=== PATIENT | female | born 1980 | race Caucasian/White ===

== ENCOUNTER 2024-09-06 15:47 | Inpatient (IN) ==
--- NOTE | 2024-09-06 16:10 | Emergency Department Note ---
Impression & Plan Intentional overdose ADMIT ED Provider Note HPI: History obtained from EMS report. The patient is a 43-year-old female who presents the emergency department after an intentional overdose. Patient went to an outpatient facility through [facility] and told someone there that she had overdosed on Excedrin, ibuprofen, and Tylenol. Per EMS report patient states she took "100 tabs". On arrival here to the ED the patient appears altered, she is alert to verbal stimuli, she is saturating well on room air and she is otherwise hemodynamically stable. She is a poor historian and seems somewhat delirious. On arrival here to the ED the patient is otherwise alert, she is protecting her airway and saturating well on arrival. Patient is otherwise hemodynamically stable. ROS: - Per HPI Differential Diagnosis: Polysubstance abuse, intentional drug overdose, salicylate toxicity, acetaminophen toxicity, alcohol intoxication, amongst other potential pathologies. *Outpatient medications and allergy history reviewed. PE: General: Alert to verbal stimuli, delirious appearing HEENT: Normocephalic, trachea midline Eyes: Extraocular eye movement is intact, no scleral erythema Pulmonary: Clear to auscultation bilaterally, no wheezing Cardio: Regular rate and rhythm GI: Abdomen is soft to palpation : No suprapubic tenderness MSK: No evidence of trauma or malformation of the extremities, no edema Skin: No evidence of rash Neuro: Alert, no focal deficits Psychiatric: Patient is mildly agitated, delirious INDEPENDENT INTERPRETATIONS: county manager: (As interpreted by myself): - An order was placed for continuous cardiac monitoring - Patient was noted to be in sinus rhythm with a rate of 101 EKG: (As interpreted by myself): Rate: 65 Rhythm: Sinus rhythm Intervals: QTc 501 ms, otherwise within normal limits ST changes: No ST elevation Time: 1606 Interventions provided in ED: -N-acetylcysteine drip, sodium bicarbonate drip, IV Narcan Medical Decision Making: IV was established and lab work obtained, patient was placed on reimbursement director. Patient was initiated on N-acetylcysteine shortly after arrival secondary to reported history of Tylenol ingestion with altered mental status. Lab work shows a nonspecific leukocytosis of 18.59, hemoglobin is normal, platelet count is 403, venous blood gas shows a venous pH of 7.30, CMP shows sodium bicarbonate reduced at 14. Initial acetaminophen serum level comes back elevated at 615, salicylate level is also elevated at 49.0. Patient's case was discussed with poison control, they are in agreement for initiation of N-acetylcysteine as well as sodium bicarbonate drip as the patient's salicylate level is greater than 30.0. On my reassessment the patient remains hemodynamically stable, she is more alert appearing, she remains protecting her airway without issue. I discussed the patient's presentation with the on-call midlevel provider for [facility], Clarissa davis PA-C, and the patient was placed for admission in stable condition to the service of Dr. Alvarado. Consultants/Discussions held with other healthcare providers: -Poison Control Center -Hospitalist, Dr. Alvarado * CRITICAL CARE TIME: ( 39 ) minutes -Initiation of N-acetylcysteine as well as sodium bicarbonate drip for patient with acute acetaminophen poisoning and acute salicylate poisoning with altered mental status, discussion with poison control, discussion with other healthcare providers and arrangement of admission. Diagnosis: 1. Intentional overdose 2. Tylenol toxicity, acute 3. Salicylate toxicity, acute 4. Metabolic encephalopathy, acute 5. Metabolic acidosis, acute Disposition: Admission Stan Brown DO Emergency Medicine Past Med/Surg History Problem List (Updated 09/06/24 @ 22:07 by Stan Brown DO) High anion gap metabolic acidosis Respiratory alkalosis Toxic encephalopathy Metabolic acidosis Intentional overdose (Acute) Social History Smoking Status: Never smoker Hx Alcohol Use: Yes Hx Substance Use: No Preferred Language: Kyr[employer] [employer] Shift Lead Required: No Beliefs That Will Affect Care: None Current Living Situation: Parent Current Living Situation Comment: lives with mother Other Information That Helps Us Care for You: No Assistive Devices: Glasses and Hearing Aid - Bilateral Allergies Allergies Allergy/AdvReac Type Severity Reaction Status Date / Time No Known Allergies Allergy Unverified 09/06/24 16:46 Home Meds Home Medications Medication Instructions Recorded Confirmed NyQuil 2 HS 09/06/24 Vitamin D3 2,000 unit 1XD 09/06/24 09/06/24 aspirin 325 mg tablet,delayed 325 mg PO DAILY 09/06/24 09/06/24 release brexpiprazole 4 mg tablet (Rexulti) 4 mg PO DAILY 09/06/24 09/06/24 bupropion HCl 100 mg tablet,12 hr 100 mg PO DAILY 09/06/24 09/06/24 sustained-release carvedilol 6.25 mg tablet 6.25 mg PO BID 09/06/24 09/06/24 clonazepam 0.5 mg tablet 1 mg PO DAILY 09/06/24 09/06/24 clonidine HCl 0.2 mg tablet 0.4 mg PO DAILY 09/06/24 09/06/24 dextroamphetamine-amphetamine ER 50 mg PO DAILY 09/06/24 09/06/24 50 mg capsule,3 bead,ext release 24hr (Mydayis) famotidine 20 mg tablet 20 mg PO BID PRN breakthrough 09/06/24 09/06/24 heatburn hydroxyzine pamoate 25 mg capsule 50 mg PO DAILY 09/06/24 09/06/24 losartan 25 mg tablet 25 mg PO DAILY 09/06/24 09/06/24 naltrexone 50 mg tablet 50 mg PO DAILY 09/06/24 09/06/24 pantoprazole 40 mg tablet,delayed 40 mg PO DAILY 09/06/24 09/06/24 release zonisamide 100 mg capsule 200 mg PO DAILY 09/06/24 09/06/24 Results & Data (ED) Vital Signs Vital Signs - 24 hr 09/06/24 15:59 09/06/24 16:01 09/06/24 16:03 Temperature 37 C Temperature Source Oral Pulse Rate 78 83 85 Pulse Rate from SpO2 Sensor 85 Respiratory Rate 22 23 Respiratory Effort / Characteristics Non-Labored Spontaneous Respiratory Depth Normal Blood Pressure 118/69 Blood Pressure Mean 85 Pulse Oximetry 99 99 Oxygen Delivery Method Room Air Sepsis Recent Fever Within 48 Hours No Sepsis New/Unexplained Change in Mental Status N/A Sepsis Action Taken by Nursing No Action Required 09/06/24 16:04 09/06/24 16:08 09/06/24 16:12 Temperature Temperature Source Pulse Rate 64 Pulse Rate from SpO2 Sensor 64 Respiratory Rate Respiratory Effort / Characteristics Respiratory Depth Blood Pressure 118/69 Blood Pressure Mean 83 Pulse Oximetry 99 Oxygen Delivery Method Room Air Sepsis Recent Fever Within 48 Hours Sepsis New/Unexplained Change in Mental Status Sepsis Action Taken by Nursing 09/06/24 16:15 09/06/24 16:15 09/06/24 16:15 Temperature Temperature Source Pulse Rate 70 Pulse Rate from SpO2 Sensor 69 Respiratory Rate 22 Respiratory Effort / Characteristics Respiratory Depth Blood Pressure 122/67 122/67 Blood Pressure Mean 77 77 Pulse Oximetry 99 Oxygen Delivery Method Sepsis Recent Fever Within 48 Hours Sepsis New/Unexplained Change in Mental Status Sepsis Action Taken by Nursing 09/06/24 16:18 09/06/24 16:31 09/06/24 16:31 Temperature Temperature Source Pulse Rate 68 Pulse Rate from SpO2 Sensor 68 Respiratory Rate Respiratory Effort / Characteristics Respiratory Depth Blood Pressure 109/62 109/62 Blood Pressure Mean 69 69 Pulse Oximetry 99 Oxygen Delivery Method Sepsis Recent Fever Within 48 Hours Sepsis New/Unexplained Change in Mental Status Sepsis Action Taken by Nursing 09/06/24 16:33 09/06/24 16:45 09/06/24 16:45 Temperature Temperature Source Pulse Rate 78 84 Pulse Rate from SpO2 Sensor 77 85 Respiratory Rate 16 Respiratory Effort / Characteristics Respiratory Depth Blood Pressure 92/64 L Blood Pressure Mean 69 Pulse Oximetry 98 98 Oxygen Delivery Method Sepsis Recent Fever Within 48 Hours Sepsis New/Unexplained Change in Mental Status Sepsis Action Taken by Nursing 09/06/24 16:45 09/06/24 16:45 09/06/24 16:51 Temperature Temperature Source Pulse Rate 82 Pulse Rate from SpO2 Sensor 82 Respiratory Rate Respiratory Effort / Characteristics Respiratory Depth Blood Pressure 92/64 L 92/64 L Blood Pressure Mean 69 69 Pulse Oximetry 98 Oxygen Delivery Method Sepsis Recent Fever Within 48 Hours Sepsis New/Unexplained Change in Mental Status Sepsis Action Taken by Nursing 09/06/24 16:54 09/06/24 17:00 09/06/24 17:09 Temperature Temperature Source Pulse Rate 85 Pulse Rate from SpO2 Sensor 85 97 H Respiratory Rate 23 Respiratory Effort / Characteristics Respiratory Depth Blood Pressure 92/65 L Blood Pressure Mean 72 Pulse Oximetry 97 97 Oxygen Delivery Method Sepsis Recent Fever Within 48 Hours Sepsis New/Unexplained Change in Mental Status Sepsis Action Taken by Nursing 09/06/24 17:15 09/06/24 17:15 09/06/24 17:15 Temperature Temperature Source Pulse Rate Pulse Rate from SpO2 Sensor Respiratory Rate Respiratory Effort / Characteristics Respiratory Depth Blood Pressure 97/61 L 97/61 L 97/61 L Blood Pressure Mean 70 70 70 Pulse Oximetry Oxygen Delivery Method Sepsis Recent Fever Within 48 Hours Sepsis New/Unexplained Change in Mental Status Sepsis Action Taken by Nursing 09/06/24 17:15 Temperature Temperature Source Pulse Rate 98 H Pulse Rate from SpO2 Sensor 98 H Respiratory Rate 20 Respiratory Effort / Characteristics Respiratory Depth Blood Pressure Blood Pressure Mean Pulse Oximetry 97 Oxygen Delivery Method Sepsis Recent Fever Within 48 Hours Sepsis New/Unexplained Change in Mental Status Sepsis Action Taken by Nursing Laboratory Data 09/06/24 16:00 09/06/24 21:10 Lab Results 09/06/24 09/06/24 Range/Units 16:00 16:07 WBC 18.59 H (4.8-10.8) K/ul RBC 4.64 (4.20-5.40) M/uL Hgb 14.3 (12.0-16.0) g/dl Hct 41.5 (37.0-47.0) % MCV 89.4 (80.0-100.0) fL MCH 30.8 (25.0-34.0) pg MCHC 34.5 (32.0-36.0) g/dL RDW Std Deviation 40.5 (36.4-46.3) fL RDW Coeff of Christine 12.4 (11.5-14.5) % Plt Count 403 H (130-400) K/uL MPV 9.5 (9.4-12.4) fL Immature Gran % (Auto) 0.3 % Neut % (Auto) 47.2 % Lymph % (Auto) 45.9 % Rawlins % (Auto) 5.6 % Eos % (Auto) 0.5 % Baso % (Auto) 0.5 % Neut # (Auto) 8.76 H (1.40-6.50) K/uL Lymph # (Auto) 8.54 H (1.20-3.40) K/uL [place] # (Auto) 1.04 H (0.11-0.59) K/uL Eos # (Auto) 0.10 (0.00-0.50) K/uL Baso # (Auto) 0.09 (0.00-0.20) K/uL Immature Gran # (Auto) 0.06 (0.01-0.20) K/uL Microcytosis Present Echinocytes 2+ VBG pH 7.30 L (7.36-7.41) VBG pCO2 27 L (38-50) mmHg VBG pO2 56 mmHg VBG HCO3 13 mmol/L VBG O2 Saturation 87.6 % VBG Base Excess -11.5 mEq/L Sodium 139 (136-145) mmol/L Potassium 3.7 (3.5-5.1) mmol/L Chloride 103 (98-107) mmol/L Carbon Dioxide 14 L (21-32) mmol/L Anion Gap 22 H (3-11) BUN 19 (6-23) mg/dl Creatinine 1.03 (0.6-1.2) mg/dl Est Cr Clr Drug Dosing 63.6 ml/min eGFR 69.62 BUN/Creatinine Ratio 18.4 (10-20) Glucose 235 H (70-99(Fasting)) mg/dl Calcium 9.6 (8.6-10.3) mg/dl Total Bilirubin 0.4 (0.2-1.0) mg/dl AST 17 (13-39) U/L ALT 9 (7-52) U/L Alkaline Phosphatase 81 (34-104) U/L Total Protein 7.5 (6.0-8.3) gm/dl Albumin 4.9 (3.4-5.0) gm/dl Globulin 2.6 (2.5-4.0) gm/dl Albumin/Globulin Ratio 1.9 (0.9-2) TSH 1.025 (0.300-4.500) uIu/ml Salicylates 49.0 H* (3.0-30) mg/dl Acetaminophen 615 H* (10-30) ug/ml Administered Medications Sodium Bicarbonate 150 meq/ (Dextrose) 1,150 mls @ 175 mls/hr IV .Q6H35M JOON Stop: 10/06/24 16:14 Last Infusion: 09/06/24 20:24 Dose: 175 mls/hr Documented By: Admin: 09/06/24 16:38 Dose: 150 mls/hr Documented By: BCN Potassium Chloride (K Nicholas / Wtr) 10 meq in 100 mls @ 100 mls/hr IV Q1H JOON Stop: 09/06/24 22:14 Last Admin: 09/06/24 21:04 Dose: 100 mls/hr Documented By: Infusion: 09/06/24 20:56 Dose: Infused Documented By: Admin: 09/06/24 19:56 Dose: 100 mls/hr Documented By: Infusion: 09/06/24 19:50 Dose: Infused Documented By: Admin: 09/06/24 18:50 Dose: 100 mls/hr Documented By: AMB Pantoprazole Sodium (Protonix) 40 mg in 10 mls @ 5 mls/min IV DAILY JOON Stop: 10/06/24 18:59 Last Admin: 09/06/24 20:24 Dose: 5 mls/min Documented By: ISATU Magnesium Sulfate/Dextrose (Magnesium Sulfate / D5w) 1 gm in 100 mls @ 100 mls/hr IV Q1H JOON Stop: 09/06/24 23:14 Last Admin: 09/06/24 21:22 Dose: 100 mls/hr Documented By: Infusion: 09/06/24 21:22 Dose: Infused Documented By: Admin: 09/06/24 20:25 Dose: 100 mls/hr Documented By: ISATU Miscellaneous (Icu Protocol For Hyperglycemia) 1 each N/A ACHS JOON Stop: 09/08/24 20:59 Last Admin: 09/06/24 21:06 Dose: Not Given Documented By: ISATU Discontinued Medications Acetylcysteine (Acetylcysteine Iv 21 Hr Regimen (>40kg)) 1 each IV NOW STA; Protocol Stop: 09/06/24 16:06 Last Admin: 09/06/24 17:25 Dose: 1 each Documented By: RITIKA Acetylcysteine 9,450 mg/ (Dextrose) 247.25 mls @ 200 mls/hr IV ONCE ONE; Protocol Stop: 09/06/24 17:19 Last Infusion: 09/06/24 18:04 Dose: Infused Documented By: Admin: 09/06/24 16:39 Dose: 200 mls/hr Documented By: RITIKA Acetylcysteine 3,150 mg/ (Dextrose) 515.75 mls @ 125 mls/hr IV ONCE ONE; Protocol Stop: 09/06/24 21:12 Last Admin: 09/06/24 18:04 Dose: 125 mls/hr Documented By: RITIKA Sodium Chloride (Nss) 1,000 mls @ 999 mls/hr IV .Q1H1M JOON Stop: 09/06/24 18:15 Last Infusion: 09/06/24 18:04 Dose: Infused Documented By: Admin: 09/06/24 16:54 Dose: 999 mls/hr Documented By: Infusion: 09/06/24 16:54 Dose: Infused Documented By: Admin: 09/06/24 16:25 Dose: 999 mls/hr Documented By: RITIKA Miscellaneous (Stat Iv/Im) 1 each N/A NOW STA Stop: 09/06/24 16:06 Last Admin: 09/06/24 17:25 Dose: 1 each Documented By: RITIKA Miscellaneous (Stat Iv/Im) 1 each N/A NOW STA Stop: 09/06/24 16:08 Last Admin: 09/06/24 17:25 Dose: 1 each Documented By: RITIKA Naloxone HCl (Naloxone Hcl 0.4 Mg/1 Ml Vial/Carp) 0.4 mg IV NOW STA Stop: 09/06/24 16:22 Last Admin: 09/06/24 16:27 Dose: 0.4 mg Documented By: RITIKA Sodium Bicarbonate (Sodium Bicarb 8.4% Inj 50 Meq/50 Ml Syr) 50 meq IV NOW STA Stop: 09/06/24 17:07 Last Admin: 09/06/24 17:24 Dose: 50 meq Documented By: RITIKA Sodium Bicarbonate (Sodium Bicarb 8.4% Inj 50 Meq/50 Ml Syr) 50 meq IV NOW STA Stop: 09/06/24 20:05 Last Admin: 09/06/24 20:25 Dose: 50 meq Documented By: ISATU Discharge Plan Visit Data Chief Complaint: Overdose (Intentional) Stated Complaint: OD ED Provider: Stan Brown Discharge Problem: Intentional overdose Patient Disposition: Admitted As Inpatient Discharge Instructions Interventions: ED Discharge Assessment Last Done: 09/06/24 18:11
[2024-09-06 16:11] LABS: Hematocrit (blood only) 41.5 % (37.0-47.0); Hemoglobin 14.3 g/dl (12.0-16.0); Mean Corpuscular Hemoglobin 30.8 pg (25.0-34.0); Mean Corpuscular Hgb Conc 34.5 g/dL (32.0-36.0); Mean Corpuscular Volume 89.4 fL (80.0-100.0); Mean Platelet Volume 9.5 fL (9.4-12.4); Platelet Count 403 K/uL (130-400); RDW Coefficient of Variation 12.4 % (11.5-14.5); RDW Standard Deviation 40.5 fL (36.4-46.3); Red Blood Count 4.64 M/uL (4.20-5.40); White Blood Count 18.59 K/ul (4.8-10.8)
[2024-09-06] MEDS: SODIUM CHLORIDE 0.9% 1,000 ML IV SCH (16:25)
[2024-09-06] MEDS: NALOXONE HCL 0.4 MG/1 ML VIAL/CARP IV STA (16:27)
[2024-09-06 16:35] LABS: Basophils # (auto) 0.09 K/uL (0.00-0.20); Basophils % (auto) 0.5 %; Echinocytes 2+; Eosinophils % (auto) 0.5 %; Immature Granulocytes # (auto) 0.06 K/uL (0.01-0.20); Immature Granulocytes % (auto) 0.3 %; Lymphocytes # (auto) 8.54 K/uL (1.20-3.40); Lymphocytes % (auto) 45.9 %; Microcytosis Present; Monocytes # (auto) 1.04 K/uL (0.11-0.59); Monocytes % (auto) 5.6 %; Neutrophils # (auto) 8.76 K/uL (1.40-6.50); Neutrophils % (auto) 47.2 %
[2024-09-06 16:37] LABS: Albumin Globulin Ratio 1.9 (0.9-2); Albumin Level 4.9 gm/dl (3.4-5.0); BUN Creatinine Ratio 18.4 (10-20); Bilirubin,Total 0.4 mg/dl (0.2-1.0); Calcium 9.6 mg/dl (8.6-10.3); Creatinine Clr Calc Pharmacy 63.6 ml/min; Globulin 2.6 gm/dl (2.5-4.0); Potassium 3.7 mmol/L (3.5-5.1); Total Protein 7.5 gm/dl (6.0-8.3)
[2024-09-06] MEDS: SODIUM BICARBONATE 8.4% 150 MEQ in DEXTROSE 5% 1,000 ML IV SCH (16:38)
[2024-09-06 16:51] LABS: Thyroid Stimulating Hormone 1.025 uIu/ml (0.300-4.500)
[2024-09-06 17:23] LABS: Base Excess VBG -11.5 mEq/L; HCO3 VBG 13 mmol/L; Oxygen Saturation VBG 87.6 %; PCO2 VBG 27 mmHg (38-50); PO2 VBG 56 mmHg
[2024-09-06] MEDS: SODIUM BICARB 8.4% INJ 50 MEQ/50 ML SYR IV STA ×2 (17:24→20:25)
[2024-09-06] MEDS: AcetylCYSTEINE IV 21 HR REGIMEN (>40KG) IV STA (17:25)
[2024-09-06] MEDS: STAT IV/IM STA ×2 (17:25)
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
[2024-09-06] MEDS ORDERED: PROMETHAZINE 6.25 MG/50.25 ML BAG IV PRN (18:48)
[2024-09-06] MEDS: POTASSIUM CHLORIDE / WTR 10 MEQ/100 ML PLCT IV SCH ×2 (18:50→23:08)
[2024-09-06 18:55] LABS: Appearance Urine Clear (Clear); Bacteria Urine Automated None Seen (None Seen); Bilirubin Urine Negative (Negative); Blood Urine Negative (Negative); Cast Urine Automated 0-2 /lpf (0-2); Color Urine Yellow; Epithelial Cell Urine Auto 0-2 /hpf (0-2); Glucose Urine UA Negative (Negative); Ketones Urine 3+ (Negative); Leukocyte Esterase Urine Negative (Negative); Nitrite Urine Negative (Negative); Protein Urine Trace (Negative); Specific Gravity Urine 1.013 (1.000-1.030); Urobilinogen Urine Negative (Negative); WBC Urine Automated 0-5 /hpf (0-5); pH Urine 6.5 (4.5-7.5)
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
[2024-09-06 19:26] LABS: Base Excess VBG -8.6 mEq/L; HCO3 VBG 15 mmol/L; Oxygen Saturation VBG 60.8 %; PCO2 VBG 24 mmHg (38-50); PO2 VBG 32 mmHg; pH VBG 7.39 (7.36-7.41)
[2024-09-06 19:49] LABS: BUN Creatinine Ratio 19.5 (10-20); Calcium 7.4 mg/dl (8.6-10.3); Creatinine Clr Calc Pharmacy 79.9 ml/min; Magnesium 1.6 mg/dl (1.7-2.4); Phosphorus 2.8 mg/dl (2.5-4.9); Potassium 3.2 mmol/L (3.5-5.1)
[2024-09-06 19:59] LABS: INR 1.1 (0.9-1.1); Partial Thromboplastin Ratio 0.8; Partial Thromboplastin Time 22 Seconds (21-31); Prothrombin Time 12.2 Seconds (9.0-12.0)
[2024-09-06 20:11] LABS: Amphetamines+Metham, Urine Pos (Neg); Barbiturates, Urine Neg (Neg); Benzodiazepine, Urine Neg (Neg); Cocaine, Urine Neg (Neg); Fentanyl, Urine Neg (Neg); MDMA (Ecstacy), Urine Neg (Neg); Marijuana, Urine Neg (Neg); Methadone, Urine Neg (Neg); Opiate, Urine Neg (Neg); Phencyclidine, Urine Neg (Neg)
[2024-09-06] MEDS: PANTOprazole 40 MG/10 ML SYR IV SCH (20:24)
[2024-09-06] MEDS: MAGNESIUM SULFATE / D5W 1 GM/100 ML BAG IV SCH (20:25)
--- NOTE | 2024-09-06 21:03 | CT Scan Report ---
Exam(s): CT HEAD Without Contrast EXAM: CT Head Without Intravenous Contrast CLINICAL HISTORY: Reason for exam: obtunded. TECHNIQUE: Axial computed tomography images of the head/brain without intravenous contrast. CTDI is 38.17 mGy and DLP is 624.41 mGy-cm. Automated exposure control was utilized for the study. A dose lowering technique was utilized adhering to the principles of ALARA. COMPARISON: No relevant prior studies available. FINDINGS: Brain: Unremarkable. No hemorrhage. No significant white matter disease. No edema. No midline shift. Lim-white matter differentiation maintained. Ventricles: Unremarkable. No hydrocephalus. Bones/joints: Unremarkable. No acute fracture. Soft tissues: Unremarkable. Sinuses: Unremarkable as visualized. Mastoid air cells: Unremarkable as visualized. No mastoid effusion. IMPRESSION: No acute intracranial process. Electronically signed by: Violet Ornelas M.D. 09/06/24 21:02 PM
[2024-09-06] MEDS: ICU Protocol for HYPERglycemia SCH (21:06)
--- NOTE | 2024-09-06 21:26 | XRay Report ---
SINGLE VIEW CHEST CLINICAL HISTORY: Change in mental status FINDINGS: An AP, portable, semierect chest radiograph is obtained. No prior studies are available for comparison at the time of dictation. The cardiomediastinal silhouette is unremarkable. The lungs and pleural spaces are clear. No pneumothorax is seen. The skeletal structures appear osteopenic. The cresencio ny thorax is grossly intact. There is S-shaped thoracolumbar scoliosis. There is gaseous distention o f the stomach seen in the upper abdomen. IMPRESSION: No acute cardiopulmonary abnormality is identified. ACT 112: Negative or not required by law. Electronically signed by: Phil Castillo M.D. 09/06/2024 9:25 PM
[2024-09-06 21:43] LABS: BUN Creatinine Ratio 18.2 (10-20); Calcium 7.6 mg/dl (8.6-10.3); Creatinine Clr Calc Pharmacy 74.5 ml/min; Phosphorus 2.6 mg/dl (2.5-4.9); Potassium 3.5 mmol/L (3.5-5.1)
[2024-09-06] MEDS ORDERED: GLUCOSE 40% GEL 15 GM TUBE PO PRN (22:00)
[2024-09-06] MEDS ORDERED: GLUCAGON FOR INJ 1 MG VIAL SQ PRN (22:00)
[2024-09-06] MEDS ORDERED: GLUCOSE 10 TAB/TUBE PO PRN (22:00)
[2024-09-06] MEDS ORDERED: DEXTROSE 50% 50 ML SYRINGE IV PRN (22:00)
[2024-09-06] MEDS ORDERED: CARBOHYDRATES FOR HYPOGLYCEMIA PO PRN (22:00)
[2024-09-06] MEDS: INSULIN ASPART PER UNIT CHARGE SC STA (22:13)
[2024-09-06] MEDS: THIAMINE HCL 200 MG in SODIUM CHLORIDE 0.9% 50 ML IV STA (22:14)
[2024-09-06 23:20] LABS: INR 1.1 (0.9-1.1)
[2024-09-06] MEDS ORDERED: FOMEPIZOLE 1,500MG/1.5ML VIAL IV STA (23:50)
[2024-09-06 23:55] LABS: Salicylate 77.3 mg/dl (3.0-30)
[2024-09-07] MEDS: MAGNESIUM SULFATE / D5W 1 GM/100 ML BAG IV SCH (00:10)
[2024-09-07] MEDS: LACTATED RINGER'S 500 ML IV ONE (00:10)
[2024-09-07] MEDS ORDERED: INSULIN PROTOCOL GOAL RANGE ONE (00:21)
--- NOTE | 2024-09-07 00:21 | Communication Note ---
Date of Service: September 07, 2024 Patient admitted with intentional ingestion and lab revealing massive Tylenol ingestion and salicylate ingestion. She was initiated on Acetadote therapy and bicarb infusions. - PH is nearing goal with boluses and infusion of 7.5-7.55 - electrolytes have been replaced Unfortunately patient remains stuporous with best exam being obtunded, she is with increasing lactic acidosis and hyperglycemia- both likely signifying organ and cellular dysfunction from her ingestions. - I spoke with Enterprise Applications Manager Dr. Feng at poison control with her updated labs and levels- salicylate up 77.3 and Tylenol 609- this is somewhere as much as 12 hours after ingestion or less - Recommendations- - increase Acetadote to 750mg/hour - Fomepizole 15mg/kg - Dialysis emergently/urgently We are unable to provide Emergent/urgent dialysis at this time overnight, so patient will require transport to tertiary center, based on her Tylenol levels may need evaluation by meat supervisor as this progresses as well. - [facility]. [facility] - Will await transport route and time- ROOM 990 [facility] 1478 [facility] requested Dialysis line placement- Current risk is that when patient is awake she is moving around, kicking, and flexing - so if able to place safely will attempt- mother consented over the phone - risks and benefits explained. See seperate procedure note Family updated on phone prior to requesting transfer and after transfer confirmed. Coding Level of Care Code None
[2024-09-07] MEDS: DEXTROSE 5% IV STA (00:30)
[2024-09-07] MEDS: FOMEPIZOLE IV STA (00:30)
[2024-09-07] MEDS: INSULIN REGULAR 250 UNITS in SODIUM CHLORIDE 0.9% 247.5 ML IV SCH (00:50)
[2024-09-07] MEDS: NovoLIN-R BOLUS FROM BAG IV ONE (00:51)
[2024-09-07] MEDS ORDERED: SODIUM BICARB 8.4% INJ 50 MEQ/50 ML SYR IV ONE (00:54)
[2024-09-07] MEDS: SODIUM BICARB 8.4% INJ 50 MEQ/50 ML SYR IV STA (01:13)
[2024-09-07 01:28] LABS: BUN Creatinine Ratio 15.6 (10-20); Calcium 7.4 mg/dl (8.6-10.3); Creatinine Clr Calc Pharmacy 68.3 ml/min; Magnesium 3.2 mg/dl (1.7-2.4); Potassium 3.5 mmol/L (3.5-5.1)
--- NOTE | 2024-09-07 01:31 | Procedure Note ---
Procedure Note Date of Service September 07, 2024 Procedure: RIGHT FEMORAL DIALYSIS LINE Proceduralist: Clark BO ([facility]- Attending: Dr. Garza Indication: Will need dialysis emergent/urgent Anesthesia: [x]Lidocaine 1% [x] Verbal Consent was obtained by Ata "Radha" Indications, risks, and benefits were explained at length. A time-out was completed verifying correct patient, procedure, site, positioning, and implants(s) or special equipment if applicable. Patients Right Groin was scouted with ultrasound, once adequate target was identified, I donned sterile attire and the site was cleansed and draped in the typical sterile fashion using Chloraprep. The Femoral Vein and Femoral Artery were identified using ultrasound. The superficial tissue was anesthetized using 6 mL of 1% lidocaine without epinephrine under direct visualization with the ultrasound. After adequate anesthetization was achieved, the Femoral vein was cannulated under direct ultrasound guidance using an introducer needle on a syringe. Good venous blood return was maintained prior to removal of syringe from introducer needle. Using Seldinger Technique, a guide wire was advanced through the introducer needle without resistance. The introducer needle was removed and ultrasound images were obtained of the guide wire within the Femoral Vein. A small incision was made in penetrating fashion at the guide wire insertion site utilizing an 11 blade scalpel. The smaller dilator was advanced to the vessel without resistance, and exchanged for the larger dilator- this was also advanced without resistance. The dilator was exchanged for 12 FR 20 CM dialysis catheter which was advanced into the vessel without resistance. The guide wire was removed intact from the catheter without issue. Claves were placed on each catheter tip with confirmation of good blood flow from each lumen. Each port was easily flushed with sterile saline. The catheter was placed at 20 cm and sutured in place. BioPatch was applied to the catheter and a sterile Tegaderm dressing was applied over the catheter with careful attention to sterility. Patient tolerated procedure well. No immediate complications were met. Images obtained are NOT saved for permanent record Artery AND Vein visualized: YES Compressible Vein: YES Guidewire or Short Catheter seen in vein prior to dilation: YES [facility] Procedure Codes (Charges) Tubes, Drains, and Vasc Access Procedure 1: Tubes, Drains, and Vasc Access: [id number] Insertion Of Non-tunneled Catheter Age 6 Yrs> Coding CPT Codes Tubes, Drains, and Vasc Access - Tubes, Drains, and Vasc Access: [id number] Insertion Of Non-tunneled Catheter Age 6 Yrs> ([id number]) Additional Codes Date of Service (PG.SURGERY)
[2024-09-07] MEDS ORDERED: POTASSIUM CHLORIDE / WTR 10 MEQ/100 ML PLCT IV SCH (01:45)
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
[2024-09-07] MEDS ORDERED: INSULIN ASPART PER UNIT CHARGE SC SCH ×2 (07:30)
[2024-09-07 10:42] LABS: iSTAT Creatinine 2.2 mg/dl (0.6-1.3); iSTAT Hemoglobin 14.3 g/dl (12.0-16.0); iSTAT Ionized Calcium 0.83 mmol/l (1.12-1.32); iSTAT Potassium 3.6 mmol/L (3.3-5.0)
--- OUTSIDE RECORDS SUMMARY | 2024-09-07 11:31 | External Medical Summary | Summary of Care ---
Author Name Unknown Organization [facility] Address [address] [place] [address] Phone [phone] Care Team Providers Care Store Stock Associate Name Role Phone Kaya Garner MD Primary Care Provider [phone] Encounter Details Date Type Department Care Team (Late st Contact Info) Description 06/11/2024 Orders Only Outcomes Research Department [address] [place] [address] Kira Bernal CHRA MyCode Research Other*[id number] Allergies Active Allergy Reactions Criticality Noted Date Comments Citrullus Vulgaris Hives 06/23/2016 Watermelon documented as of this encounter (statuses as of 06/11/2024) Medications Medication Sig Dispensed Refills Start Date End Date Status Amphet-Dextroamphet 3-Bead ER (MYDAYIS) 37.5 MG CP24 Take by mouth. Active losartan (COZAAR) 25 MG Tablet Take 25 mg by mouth daily. Active levonorgestrel (MIRENA, 52 MG,) 20 MCG/24HR IUDIndications:inserte d 02/15/19 Insert 1 Each into uterus once. Active carvedilol (COREG) 6.25 MG Tablet Take 6.25 mg by mouth 2 times a day with morning and evening meals. Active Cholecalciferol (VITAMIN D3) 50 MCG (1999 UT) Capsule Take 2,000 Units by mouth. 07/24/2018 Active Amphetamine-Dextroamph etamine 20 MG Oral Tablet (Adderall) Take 20 mg by mouth daily. 3 tablets daily Active documented as of this encounter (statuses as of 06/11/2024) Active Problems Problem Noted Date Diagnosed Date Chronic frontal sinusitis 12/22/2015 Blurry vision 12/22/2015 Fibromyalgia 10/21/2015 Hair loss 04/02/2015 Thrush 12/02/2014 Urinary frequency 12/02/2014 Irregular menstrual bleeding 12/02/2014 Headache 11/28/2014 Overview: ICD-10 update of inactive term Arthralgia 11/28/2014 Sweating 11/28/2014 Rash and nonspecific skin eruption 11/28/2014 Leukocytosis 08/05/2014 Left shoulder pain 08/05/2014 Bipolar 1 disorder 03/14/2014 Palpitations Mitral valve disorder Overview: ?eco 2011 ADHD (attention deficit hyperactivity disorder) Overview: dx as adult documented as of this encounter (statuses as of 06/11/2024) Immunizations Name Administration Dates Next Due Seasonal Influenza, Split, IIV3, With Preserve, Inj 2014 documented as of this encounter Social History Tobacco Use Types Packs/Day Years Used Date Smoking Tobacco: Never Smokeless Tobacco: Never Alcohol Use Standard Drinks/Week Comments Yes 0 (1 standard drink = 0.6 oz pur e alcohol) rare social AUDIT-C Answer Date Recorded Frequency of Alcohol Consumption Monthly or less 02/08/2019 Average Number of Drinks Not on file 019 Frequency of Binge Drinking Not on file 01/13 Utilities Answer Date Recorded Do you have trouble paying y our heating, water, or electric bill? (Adult - for ages 18 years and over) Not on file 05/01/2024 Is your family able to pay t he heat, water, or electric bill? (Household - for ages 0-17 years) Not on file 05/01/2024 Does your family have access to good internet? (Household - for ages 0-17 years) Not on file 05/01/2024 Social Connections Answer Date Recorded How often do you feel lonely or isolated from those around you? (Adult - for ages 18 years and over) Not on file 05/01/2024 Sex and Gender Information Value Date Recorded Sex Assigned at Not on file Gender Identity Not on file Sexual Orientation Not on file Job Start Date Occupation Industry Not on file Not on file Not on file documented as of this encounter Plan of Treatment Scheduled Orders Name Type Priority Associated Diagnoses Orde r Schedule MYCODE INITIAL ADULT Lab Routine [employer] Research Other*[id number] Expected: 06/11/2024 (Approximate), Expires: 07/01/2025 Health Maintenance Due Date Last Done Comments Hepatitis C Screening 1999 DTaP,Tdap,and Td Vaccines (1 - Tdap) 2000 Hepatitis B Vaccine (1 of 3 - 19+ 3-dose series) 2000 HPV/Co-Test 2011 COVID-19 Vaccine (1 - 2022-24 season) 2023 Mammogram 09/20/2023 09/20/2022, 09/17/2021 Cervical Cancer Screening 02/12/2024 Pap Smear 02/12/2024 02/11/2021, 0804/2018, 06/19/2018, Additional history exists Lipid Panel 04/23/2024 04/23/2019, 05/14, 12/01/2017 Influenza Vaccine (FLU shot) (#1) 2024 08/28/2020, 2014 HIV Screening Completed 01/27/2021 HPV (Gardasil) Vaccine Aged Out No lo nger eligible based on patient's age to complete this topic MENINGOCOCCAL (MENACTRA/MENVEO) Aged Out No longer eligible based on patient's age to complete this topic Pneumococcal Vaccine: Pediatrics (0 to 5 Years) and At-Risk Patients (6 to 64 Years) Aged Out No longer eligible based on patient's age to complete this topic documented as of this encounter Medical Devices Implanted Type Area Caul Dresser Device Identifier Shelf Expiration Date Model / Serial / Lot Mirena 52mg Implanted:Qty: 1 on 02/15/2019 by Yojana Ortiz MD at OR [facility] N/A: [employer] 05/13/2021 [id number] / [id number] / [id number] Description:GTIN [id number] documented as of this encounter Visit Diagnoses Diagnosis MyCode Research Other*[id number] documented in this encounter Care Teams Store Stock Associate Relationship Specialty Start Date End Date Kaya Garner MD [address] [facility] [address] [address] PCP - General Family Medicine 02/15/19 documented as of this encounter
--- NOTE | 2024-09-07 22:30 | Electrocardiogram Report ---
Test Reason : Blood Pressure : */* mmHG Vent. Rate : 92 BPM Atrial Rate : 92 BPM P-R Int : 120 ms QRS Dur : 78 ms QT Int : 464 ms P-R-T Axes : 67 65 91 degrees QTcB Int : 573 ms Poor data quality, interpretation may be adversely affected Normal sinus rhythm Nonspecific ST and T wave abnormality Prolonged QT Abnormal ECG When compared with ECG of 06-Sep-2024 16:06, QT has lengthened Confirmed by Kasi Lubin ([id number]) on 09/07/2024 10:30:30 PM Referred By: REFERRED SELF Confirmed By: Kasi Lubin
--- NOTE | 2024-09-07 22:30 | Electrocardiogram Report ---
Test Reason : Blood Pressure : */* mmHG Vent. Rate : 65 BPM Atrial Rate : 65 BPM P-R Int : 96 ms QRS Dur : 86 ms QT Int : 482 ms P-R-T Axes : 39 62 59 degrees QTcB Int : 501 ms Sinus rhythm with short UT Prolonged QT Abnormal ECG No previous ECGs available Confirmed by Kasi Lubin ([id number]) on 09/07/2024 10:30:03 PM Referred By: REFERRED SELF Confirmed By: Kasi Lubin
--- NOTE | 2024-09-07 22:31 | Electrocardiogram Report ---
Test Reason : Blood Pressure : */* mmHG Vent. Rate : 114 BPM Atrial Rate : 114 BPM P-R Int : 118 ms QRS Dur : 68 ms QT Int : 398 ms P-R-T Axes : 77 71 75 degrees QTcB Int : 548 ms Poor data quality, interpretation may be adversely affected Sinus tachycardia Biatrial enlargement Nonspecific ST abnormality Prolonged QT Abnormal ECG When compared with ECG of 06-Sep-2024 20:24, No significant change was found Confirmed by Kasi Lubin ([id number]) on 09/07/2024 10:30:58 PM Referred By: REFERRED SELF Confirmed By: Kasi Lubin
[2024-09-10 12:16] LABS: Amphetamine Urine, Confirm 8857 ng/mL (<250); Methamphetamine, Ur Confirm NEGATIVE ng/mL (<250)
== END 2024-09-07 02:20 | disposition short-term general hospital (02) | DRG 917 ==
LOC: ED 15:47 → 1E 17:20